=== PATIENT | male | born 1985 | race Caucasian/White ===

== ENCOUNTER → 2019-11-17 17:21 | Outpatient (CLI) | payer BC, SELFPAY ==
[2019-11-17 19:17] LABS: Anion Gap 16.6 mEq/L (5-15); Blood Urea Nitrogen 21 mg/dL (7-18); Calcium 9.1 mg/dL (8.5-10.1); Carbon Dioxide 26 mmol/L (21.0-32.0); Chloride 101 mmol/L (98-107); Creatinine,Serum 1.22 mg/dL (0.70-1.30); Estimated Glomerular Filt Rate 67 ml/min (>60); GFR (African American) 81 ML/MIN (>60); Glucose 73 mg/dL (74-106); Potassium 4.6 mmoL/L (3.5-5.1); Sodium 139 mmol/L (136-145); Uric Acid 9.5 mg/dL (2.6-7.2)
== END ==
PROVIDERS: Visit Provider Internal Medicine
DX: R26.9 Unspecified abnormalities of gait and mobility (principal)
CPT/HCPCS: 80048; 84550

== ENCOUNTER 2024-01-29 16:20 | Outpatient (CLI) | payer BC, SELFPAY ==
--- NOTE | 2024-01-29 04:30 | ECG_ITS ---
APPROVED REPORT Exam: Resting ECG HR:86 bpm ECG Measurements Heart Rate 86 AXES MD 135 P 26 QRSd 96 QRS 63 QT 358 T 2 QTc 402 Conclusion SINUS RHYTHM Inferior q waves do not reach level of significance Normal ECG UNCONFIRMED REPORT Electronically signed by : Obi Das MD 01/29/2024 21:20:28
== END 2024-01-29 23:59 ==
LOC: RT 16:22
PROVIDERS: PCP Internal Medicine; Visit Provider Internal Medicine
DX: R07.9 Chest pain, unspecified (principal)
CPT/HCPCS: 93005

== ENCOUNTER 2024-04-02 07:46 | Outpatient (CLI) | payer BC, SELFPAY ==
--- NOTE | 2024-04-02 | CA_ITS ---
APPROVED REPORT Exam: Exercise Treadmill Technologist: Tisha Wood Ht: 5 ft 8 in Wt: 240 lbs BSA: 2.21 m2 HR: 75 bpm BP: 147/80 mmHg Rhythm: NSR Indications: Chest pain Medical History Medications: No home meds,,,,, Stress Test Details Test: Jerzy HR Resting HR: 92 bpm Max Heart Rate (APMHR): 179 bpm Max HR Achieved: 179 bpm Target HR (85% APMHR): 152 bpm % of APMHR: 100 Recovery HR: 109 bpm HR response to stress: Normal HR response to stress BP Resting BP: 147.0/80.0 mmHg Max BP: 185.0/89.0 mmHg Recovery BP: 156.0/86.0 mmHg BP response to stress: Normal blood pressure response to stress. ECG Resting ECG: Normal sinus rhythm, non-specific T-wave changes in inferolateral leads Stress EC mm horizontal ST depression Arrhythmia: PVCs Recovery ECG: Return to baseline within 3 minutes of recovery Recovery Arrhythmia: None Clinical Exercise duration: 10:16 min Highest Stage Achieved: Exercise capacity: 12.8 METs Overall Exercise Capacity for Age: Average Stress ECG Conclusion Patient exercised 10:16 on Jerzy Protocol. Test stopped due to shortness of air, leg fatigue. The patient has average exercise capacity compared to age and sex matched peers. He has normal HR and BP response to exercise. Symptoms: No chest pain. Arrhythmias/Ectopy: Rare PVC ST-T Changes: Approximately [address] depression. Conclusion: Average exercise capacity. Abnormal GXT with possible ischemic EKG changes. GXT only(no imaging). Further evaluation with ischemia work-up using either stress testing + imaging modality (i.e. nuclear stress test) vs. CCTA is recommended. Test Summary REST . . . . . . . Sitting REST . . . . . . . Standing REST 02:40 0.0 0.0 92 . 147/ 80 . . Stage 1 01:00 10.0 1.7 107 . . . . Stage 1 02:00 10.0 1.7 110 . . . . Stage 1 03:00 10.0 1.7 112 . 164/ 80 . . Stage 2 01:00 12.0 2.5 117 . . . . Stage 2 02:00 12.0 2.5 127 . . . . Stage 2 03:00 12.0 2.5 127 . . . . Stage 3 01:00 14.0 3.4 141 . 164/ 80 . . Stage 3 02:00 14.0 3.4 143 . 164/ 80 . . Stage 3 03:00 14.0 3.4 151 . 164/ 80 . . Stage 4 01:00 16.0 4.2 173 . . . . Stage 4 01:16 16.0 4.2 179 . . . Stop exercise at 10:16 RECOVERY 01:00 0.0 0.0 157 . . . . RECOVERY 02:00 0.0 0.0 134 . . . . RECOVERY 03:00 0.0 0.0 115 . 185/ 89 . . RECOVERY 04:00 0.0 0.0 110 . 185/ 89 . . RECOVERY 05:00 0.0 0.0 109 . 156/ 86 . . RECOVERY 05:19 0.0 0.0 111 . 156/ 86 . . Electronically signed by : Toya Siegel MD 04/02/2024 23:31:37
== END 2024-04-02 23:59 | disposition home or self-care (01) ==
LOC: RT 07:46
PROVIDERS: PCP Internal Medicine; Visit Provider Internal Medicine
DX: R07.9 Chest pain, unspecified (principal)
CPT/HCPCS: 93017; 93018

== ENCOUNTER 2024-04-09 16:47 | Outpatient (CLI) | payer BC, SELFPAY ==
[2024-04-09 17:41] LABS: Basophils # 0.1 K/mm3 (0-0.2); Basophils % 0.8 % (0.1-2.0); Eosinophils # 0.1 K/mm3 (0.0-0.4); Eosinophils % 1.7 % (0.1-12.0); Hematocrit 45.9 % (42.0-52.0); Hemoglobin 14.8 g/dL (14.1-18.0); Lymphocytes # 2.1 K/mm3 (0.7-4.5); Lymphocytes % 26.5 % (10-50); Mean Corpuscular HGB Conc 32.3 g/dL (31.8-35.4); Mean Corpuscular Volume 89.9 fl (80-94); Mean Platelet Volume 9.1 fl (7.4-10.4); Monocytes # 0.4 K/mm3 (0.1-1.0); Monocytes % 5.4 % (1.7-9.3); Neutrophils # 5.2 K/mm3 (1.8-7.8); Neutrophils % 65.6 % (37.0-80.0); Platelet Count 278 K/mm3 (142-424); Red Blood Count 5.11 M/mm3 (4.60-6.20); Red Cell Distribution Width 13.8 % (11.5-17.5); White Blood Count 7.9 K/mm3 (4.8-10.8)
[2024-04-09 18:19] LABS: Alanine Aminotransferase 30 U/L (12-78); Albumin Level 4.7 g/dl (3.5-5.0); Albumin/Globulin Ratio 1.6 (1.1-1.8); Alkaline Phosphatase 69 U/L (38-126); Aspartate Amino Transferase 32 U/L (17-59); Bilirubin,Total 0.6 mg/dl (0.2-1.3); Blood Urea Nitrogen 19 mg/dl (9-20); Calcium 9.8 mg/dl (8.4-10.2); Carbon Dioxide 30 mmol/L (22.0-30.0); Chloride 100 mmol/L (98-107); Chol/HDL Ratio 8.3 (1-3.5); Cholesterol 233 mg/dl (140-200); Estimated Glomerular Filt Rate 67 ml/min (>60); GFR (African American) 81 ML/MIN (>60); Globulin 2.9 g/dL (1.3-3.2); Glucose 66 mg/dl (74-100); HDL Cholesterol 28 mg/dl (40-60); Sodium 140 mmol/L (136-145); Total Protein,Serum 7.6 g/dl (6.3-8.2)
[2024-04-09 18:29] LABS: Direct LDL Cholesterol 101.96 mg/dL (100-129)
[2024-04-09 18:42] LABS: Triglycerides 459 mg/dl (30-150)
== END 2024-04-09 23:59 | disposition home or self-care (01) ==
LOC: LAB.DROPOF 16:47
PROVIDERS: PCP Internal Medicine; Visit Provider Internal Medicine
DX: R07.89 Other chest pain (principal); E78.5 Hyperlipidemia, unspecified; Z82.49 Family history of ischemic heart disease and other diseases of the circulatory system
CPT/HCPCS: 80053; 80061; 85025

== ENCOUNTER 2024-11-10 18:07 | Emergency (ER) | payer BC, SELFPAY ==
[2024-11-10 18:50] VITALS: BP 128/78; PULSE 76; RESP 18; TEMP 36.7; O2SAT 100; BMI 35.9
--- NOTE | 2024-11-10 19:19 | ED_ITS ---
Discharge Plan Disposition Patient Disposition: Home, Self-Care Condition: Good Prescriptions Prescriptions: New valacyclovir 1 gram tablet 1,000 mg PO Q8H 7 Days Qty: 21 0RF Referrals Follow up/Referrals: Vasu Campbell MD [Primary Care Provider] - See instructions Activity Restrictions/Add. Instructions Additional Instructions/Restrictions: Take medication as prescribed * Take your medicines exactly as prescribed. Call your doctor if you think you are having a problem with your medicine. Antiviral medicine helps you get better faster. * Try not to scratch or pick at the blisters. * Keep the blisters moist until they heal over. One way to do this is to cover them with a thin layer of petroleum jelly, such as Vaseline, and a nonstick bandage. * Take an yjpb-svs-mwejssy pain medicine, such as acetaminophen (Tylenol), ibuprofen (Advil, Motrin), or naproxen (Aleve). Read and follow all instructions on the label. * Avoid close contact with people until the blisters have healed. It is very important for you to avoid contact with anyone who has never had chickenpox or the chickenpox vaccine. Young babies and anyone who is or has a hard time fighting infection (such as someone with HIV, diabetes, or cancer) are especially at risk. Clinical Impressions Clinical Impression: Shingles Instructions Patient Instructions: DI for Shingles, Valacyclovir Print Language Print Language: Citizen Of [place] Discharge ED Provider: Kirsten Jordan [facility] [place] HPI General Stated complaint: poss shingles Mode of Arrival: Ambulatory Source of Information: Patient Limitations: No Limitations Time Seen by Provider: 11/10/24 19:19 Description of Symptoms (Recalled from Triage Doc. by RN): PATIENT C/O POSSIBLE SHINGLES RASH TO RIGHT AXILLA AREA X 2 DAYS HEENT Symptoms (Recalled from RN notes): No Resp Symptoms (Recalled from RN notes): No Skin Symptoms (Recalled from RN notes): Yes MS Symptoms (Recalled from RN notes): No Functional Status (Recalled from RN notes): WNL History of Present Illness Provider Complaint: Patient states that he started a couple days ago and felt like tingly itchy like feeling under her right arm and felt sore there then a couple days later they noticed rash starting worried he may have shingles Related Data Previous Rx's ?Medication ?Instructions ?Recorded valacyclovir 1 gram tablet 1,000 mg PO Q8H 7 days #21 tabs 11/10/24 Allergies Allergy/AdvReac Type Severity Reaction Status Date / Time No Known Allergies Allergy Verified 11/10/24 18:57 Worker's Comp Is this a Worker's Comp case?: No [facility] Disclaimer: The information contained in this section may have been updated after the patient was seen, as this information can be updated by other users. Medical History (Updated 11/10/24 @ 19:32 by Kirsten Jordan APRN) No significant past medical history Social History Smoking Status: Unknown if ever smoked alcohol intake: never current occupational status: employed Travel in the last 8 weeks: None ROS Obtained: Yes All systems reviewed & no additional complaints except as documented and Yes Systems reviewed as appropriate & no additional complaints except as documented Constitutional Constitutional: Reports system reviewed and no additional complaints, except as documented and Reports as per HPI ENT Ears, Nose, Mouth, and Throat: Reports system reviewed and no additional complaints, except as documented and Reports as per HPI Cardiovascular Cardiovascular: Reports system reviewed and no additional complaints, except as documented and Reports as per HPI Respiratory Respiratory: Reports system reviewed and no additional complaints, except as documented and Reports as per HPI Gastrointestinal Gastrointestingal: Reports system reviewed and no additional complaints, except as documented and as per HPI Musculoskeletal Musculoskeletal: Reports system reviewed and no additional complaints, except as documented and Reports as per HPI Integumentary/Breasts Skin/Breast: Reports system reviewed and no additional complaints, except as documented, Reports as per HPI and Reports rash (red sensitive rash under right forearm ) Physical Exam General General appearance: alert and in no apparent distress Respiratory Respiratory exam: Present normal lung sounds bilaterally; Absent respiratory distress or wheezes Cardiovascular Cardiovascular exam: Present regular rate, normal rhythm and normal heart sounds Neurological Exam Neurological exam: Present alert, oriented X3 and normal gait Skin Skin exam: Present rash (red raised rash noted on right side under right arm pit that is just starting to break out appears like shingles) Medical Decision Making Medical Records Screening: Per USPSTF and CDC recommendations, given the prevalence of disease in our region, it is our hospital?s policy to screen for HIV and viral Hepatitis for all patients aged 18 and over and those with ongoing risk factors. Delvis Inquiry Pt receiving controlled substance: No Delvis was queried for this patient: No Vital Signs: 11/10/24 18:50 Temperature 98.0 F Temperature Source Oral Pulse Rate [Left Brachial] 76 Respiratory Rate 18 Blood Pressure [Left Arm] 128/78 Blood Pressure Mean [Left Arm] 94 Blood Pressure Source [Left Arm] Automatic Cuff Blood Pressure Position [Left Arm] Sitting 02 Sat by Pulse Oximetry 100 Oxygen Delivery Method Room Air
[2024-11-10 19:30] VITALS: BP 128/78; PULSE 76; RESP 18; TEMP 36.7; O2SAT 100
== END 2024-11-10 19:35 | disposition home or self-care (01) ==
PROVIDERS: Emergency Provider Nurse Practitioner; PCP Internal Medicine
DX: B02.9 Zoster without complications (principal); R21 Rash and other nonspecific skin eruption
CPT/HCPCS: 99212; G0381